=== PATIENT | male | born 1980 | race Caucasian/White ===

== ENCOUNTER 2017-01-11 21:53 | Emergency (ER) | END 2017-01-11 23:49 | disposition home or self-care (01) | DX: S91.112A Laceration without foreign body of left great toe without damage to nail, initial encounter (principal); E11.9 Type 2 diabetes mellitus without complications; I10 Essential (primary) hypertension; X58.XXXA Exposure to other specified factors, initial encounter; Y92.9 Unspecified place or not applicable ==

== ENCOUNTER 2017-04-10 14:59 | Emergency (ER) | payer OTHER ==
[~2017-04-10] VITALS: Ht 193 cm; Wt 120.0 kg
[~2017-04-10 14:59] MED LIST: CEPH-443 PO; IBUP-1542 PO
[2017-04-10 15:08] VITALS: Ht 193 cm; Wt 120.0 kg
[2017-04-10] MEDS ORDERED: MECLIZINE 12.5 MG TAB PO ONE (17:30)
[2017-04-10 17:46] VITALS: BP 165/99; PULSE 77
[2017-04-10 18:09] LABS: BASOPHIL # 0.1 10^3/ul (0.0-0.1); BASOPHILS % 0.6 % (0.0-2.0); EOSINOPHILS # 0.1 10^3/ul (0.0-0.5); EOSINOPHILS % 1.5 % (0.0-7.0); HEMATOCRIT 43.2 % (42.0-52.0); HEMOGLOBIN 15.3 g/dl (14.0-18.0); LYMPHOCYTES # 2.4 10^3/ul (0.8-2.9); LYMPHOCYTES % 27.2 % (15.0-51.0); MEAN CORPUSCULAR HEMOGLOBIN 30.4 pg (29.0-33.0); MEAN CORPUSCULAR HGB CONC 35.4 g/dl (32.0-37.0); MEAN CORPUSCULAR VOLUME 85.9 fl (82.0-101.0); MEAN PLATELET VOLUME 11.7 fl (7.4-10.4); MONOCYTE # 0.6 10^3/ul (0.3-0.9); MONOCYTES % 6.3 % (0.0-11.0); NEUTROPHIL # 5.8 10^3/ul (1.6-7.5); NEUTROPHILS % 64.2 % (39.0-77.0); PLATELET COUNT 191 10^3/UL (140-415); RED BLOOD COUNT 5.03 10^6/ul (4.70-6.10); RED CELL DISTRIBUTION WIDTH 12.7 % (11.5-14.5); WHITE BLOOD COUNT 8.9 10^3/ul (4.8-10.8)
[2017-04-10 18:16] LABS: ADD UMIC YES; UR ASCORBIC ACID NEGATIVE (NEGATIVE); UR BACTERIA FEW /HPF (NONE SEEN); UR BILIRUBIN (Dip) NEGATIVE (NEGATIVE); UR BLOOD (Dip) 2+ mg/dL (NEGATIVE); UR CLARITY SLIGHTLY CLOUDY (CLEAR); UR COLOR YELLOW (YELLOW); UR GLUCOSE (Dip) NEGATIVE (NEGATIVE); UR KETONES (Dip) NEGATIVE (NEGATIVE); UR LEUKOCYTE ESTERASE (Dip) NEGATIVE Leu/ul (NEGATIVE); UR MUCUS MODERATE /HPF (NONE SEEN); UR NITRITE (Dip) NEGATIVE (NEGATIVE); UR RBC 3 /HPF (0-5); UR SPECIFIC GRAVITY (Dip) 1.023 (1.003-1.030); UR TOTAL PROTEIN (Dip) 3+ mg/dl (NEGATIVE); UR UROBILINOGEN (Dip) NEGATIVE (NEGATIVE)
[2017-04-10 18:31] LABS: ALBUMIN 4.7 g/dl (3.3-4.9); ALBUMIN/GLOBULIN RATIO 1.38; BILIRUBIN,INDIRECT 0.7 mg/dl (0-1.1); BILIRUBIN,TOTAL 0.7 mg/dl (0.2-1.3); CALCIUM 9.7 mg/dl (8.4-10.2); CREATININE 0.64 mg/dl (0.61-1.24); TOTAL PROTEIN 8.1 g/dl (6.1-8.1)
[2017-04-10] MEDS ORDERED: MECL12.574 PO (19:07)
--- NOTE | 2017-04-10 19:15 | ERD ---
ER Documentation Chief Complaint Date/Time DATE: 04/10/17 TIME: 19:12 Chief Complaint DIZZINESS AND WEAKNESS X 1 WEEK HPI This is a 37-year-old male presents to the ER stating that he experiences a spinning sensation every time he is about to go to bed. Patient smokes marijuana every night, and states that this happened once before when he smokes too much marijuana. He has been having this over the last 3 days. Patient is also complaining of a cough and itchy ears, he denies any ear pain. Patient denies any headache, or head trauma. He denies any nausea vomiting or diarrhea. Patient has not fallen or lost consciousness. He denies fever or chills. ROS 12 point review of systems was done, all negative except per HPI. Medications Home Meds Active Scripts Meclizine Hcl* (Antivert*) 12.5 Mg Tab, 12.5 MG PO Q6H Y for DIZZINESS, #20 TAB Prov:ERNIE TALBOT 04/10/17 Ibuprofen* (Motrin*) 600 Mg Tab, 600 MG PO Q6H Y for PAIN AND OR ELEVATED TEMP, #30 TAB Prov:DYLON RUBIN. DOUGH RAISER 01/11/17 Cephalexin* (Keflex*) 500 Mg Capsule, 500 MG PO QID for 10 Days, CAP Prov:DYLON RUBIN. DOUGH RAISER 01/11/17 Cephalexin* (Keflex*) 500 Mg Capsule, 500 MG PO QID for 7 Days, CAP Prov:ALONDRA QUIÑONES. DOUGH RAISER 07/22/15 Allergies Allergies: Coded Allergies: No Known Allergies (Verified Allergy, Mild, 09/01/12) PMhx/Soc History of Surgery: Yes (right ankle, back, vasectomy) Anesthesia Reaction: No Hx Neurological Disorder: No Hx Respiratory Disorders: No Hx Cardiac Disorders: Yes (HTN) Hx Psychiatric Problems: No Hx Miscellaneous Medical Probl: Yes (dm) Hx Alcohol Use: Yes (occassional) Hx Substance Use: Yes (marijuana) Hx Tobacco Use: No Smoking Status: Never smoker Physical Exam Vitals Vital Signs Date Time Temp Pulse Resp B/P Pulse Ox O2 Delivery O2 Flow Rate FiO2 04/10/17 17:46 84 157/86 79 168/97 77 165/99 04/10/17 15:08 98.0 78 18 158/91 99 Physical Exam GENERAL: The patient is well developed and appropriate for usual state of health , in no apparent distress. HEENT: Atraumatic. Conjunctivae are pink. Pupils equal, round, and reactive to light. Extraocular muscles are grossly intact. No nystagmus. Bilateral tympanic membranes are clear with no evidence of erythema, bulging or perforation. NECK: C-spine is soft and supple. There is no cervical lymphadenopathy. CHEST: Clear to auscultation bilaterally. There are no rales, wheezes or rhonchi. HEART: Regular rate and rhythm. No murmurs, clicks, rubs or gallops. EXTREMITIES: Equal pulses bilaterally. There is no peripheral clubbing, cyanosis or edema. No focal swelling or erythema. Full range of motion. Grossly neurovascularly intact. NEURO: Alert and oriented. Cranial nerves II through XII are intact. Motor strength in all 4 extremities with 5/5 strength. Sensation grossly intact. Normal speech and gait. Negative Rhomberg. +2 DTRs. SKIN: There is no apparent rash or petechia. The skin is warm and dry. Result Diagram: 04/10/17 1745 04/10/17 174 Results 24 hrs Laboratory Tests Test 04/10/17 17:28 04/10/17 17:45 Bedside Glucose 149mg/dL White Blood Count 8.910^3/ul Red Blood Count 5.0310^6/ul Hemoglobin 15.3g/dl Hematocrit 43.2% Mean Corpuscular Volume 85.9fl Mean Corpuscular Hemoglobin 30.4pg Mean Corpuscular Hemoglobin Concent 35.4g/dl Red Cell Distribution Width 12.7% Platelet Count 58393^3/UL Mean Platelet Volume 11.7fl Neutrophils % 64.2% Lymphocytes % 27.2% Monocytes % 6.3% Eosinophils % 1.5% Basophils % 0.6% Nucleated Red Blood Cells % 0.0/100WBC Neutrophils # 5.810^3/ul Lymphocytes # 2.410^3/ul Monocytes # 0.610^3/ul Eosinophils # 0.110^3/ul Basophils # 0.110^3/ul Nucleated Red Blood Cells # 0.010^3/ul Urine Color YELLOW Urine Clarity SLIGHTLY CLOUDY Urine pH 5.0 Urine Specific Rhodes 1.023 Urine Ketones NEGATIVEmg/dL Urine Nitrite NEGATIVEmg/dL Urine Bilirubin NEGATIVEmg/dL Urine Urobilinogen NEGATIVEmg/dL Urine Leukocyte Esterase NEGATIVELeu/ul Urine Microscopic RBC 3/HPF Urine Microscopic WBC 2/HPF Urine Bacteria FEW/HPF Urine Mucus MODERATE/HPF Urine Hemoglobin 2+mg/dL Urine Glucose NEGATIVEmg/dL Urine Total Protein 3+mg/dl Sodium Level 144mmol/L Potassium Level 4.0mmol/L Chloride Level 105mmol/L Carbon Dioxide Level 28mmol/L Anion Gap 15 Blood Urea Nitrogen 14mg/dl Creatinine 0.64mg/dl Glucose Level 152mg/dl Calcium Level 9.7mg/dl Total Bilirubin 0.7mg/dl Direct Bilirubin 0.00mg/dl Indirect Bilirubin 0.7mg/dl Aspartate Amino Transf (AST/SGOT) 28IU/L Alanine Aminotransferase (ALT/SGPT) 44IU/L Alkaline Phosphatase 78IU/L Total Protein 8.1g/dl Albumin 4.7g/dl Globulin 3.40g/dl Albumin/Globulin Ratio 1.38 Current Medications Medications (Trade) Dose Ordered Sig/Nilesh Route PRN Reason Start Time Stop Time Status Last Admin Dose Admin Meclizine HCl (Antivert) 25 mg ONCE ONCE PO 04/10/17 17:30 04/10/17 17:31 DC 04/10/17 17:32 Procedures/MDM Differential Diagnosis includes but is not limited to; Benign positional vertigo , labyrinthitis, vertigo, MS, acoustic neuroma, arrhythmia, anemia, hypoglycemia , infection, dehydration. EKG was taken and read by Dr. Roe 71bpm no ST elevation or t wave inversion. At this time etiology of dizziness is unknown, however patient likely has vertigo as he describes dizziness as a spinning sensation. This may be caused by various reasons, he did mention that this happens whenever he smokes too much marijuana. He was advised to stop using marijuana before he goes to bed. Patient is neurologically intact with no focal neurological deficits I doubt intracranial etiology. Patient did not have any evidence of hypoglycemia, infection or dehydration. He is to follow- up with his primary care doctor within 1-2 days return to ER sooner if symptoms worsen. My medical decision making shared with the patient he understands and agrees with plan. Departure Diagnosis: Primary Impression: Dizziness Condition: Stable Patient Instructions: Dizziness, Unk Cause Additional Instructions: Call your primary care doctor TOMORROW for an appointment during the next 1-2 days.See the doctor sooner or return here if your condition worsens before your appointment time. ERNIE TALBOT Apr 10, 2017 19:15
== END 2017-04-10 19:21 | disposition home or self-care (01) ==
LOC: FTE 14:59
DX: R42 Dizziness and giddiness (principal); E11.9 Type 2 diabetes mellitus without complications; I10 Essential (primary) hypertension
CPT/HCPCS: 80053; 81001; 82962; 85025

== ENCOUNTER 2018-01-28 13:12 | Emergency (ER) | END 2018-01-28 18:05 | disposition home or self-care (01) ==